=== PATIENT | female | born 1985 | race African-American/Black ===

== ENCOUNTER 2017-05-15 10:50 | Emergency (ER) | payer MEDICAID ==
[~2017-05-15] VITALS: Ht 165.1 cm; Wt 97.5 kg
[~2017-05-15 10:50] MED LIST: ACETAMINOP500 MG/51 ORAL; ACETAMINOPHEN500 M3 ORAL; DOXYCYCLINE HY100 M3 PO; NKM; PRILOSEC20 MG PO
[2017-05-15] MEDS ORDERED: Acetaminophen 500mg (ES) tab ORAL ONE (11:30)
[2017-05-15] MEDS ORDERED: ROBAXIN-750750 MG PO (12:50)
--- NOTE | 2017-05-15 13:21 | Emergency Room Report ---
History of Present Illness General Chief Complaint: Back Injury Present Illness HPI Patient is a 31-year-old female presented after increased low back pain. Patient gradual onset of symptoms. The patient had pain to the right buttock area. Patient reports having injury approximately one month ago. She denies any numbness or weakness to her legs. She reports having intermittent back spasms. This is worsened by flexion. She denies any bowel or bladder dysfunction. She been having any fever. She denied dysuria. Allergies: Coded Allergies: No Known Allergies (Unverified , 08/30/12) Patient History Reviewed Nursing Documentation: PMH: Agreed, PSxH: Agreed Nursing Documentation-PMH Hx Cardiac Problems: No Hx Cancer: No Hx Gastrointestinal Problems: Yes Hx Neurological Problems: No Review of Systems All Other Systems: negative except mentioned in HPI Physical Exam Vital Signs Date Time Temp Pulse Resp B/P (MAP) Pulse Ox O2 Delivery O2 Flow Rate FiO2 05/15/17 10:53 97.9 79 20 149/97 97 Room Air General Appearance: well appearing, no apparent distress, obese Head: normocephalic, atraumatic ENT: hearing grossly normal, normal voice Neck: full range of motion, supple Respiratory: no respiratory distress, speaking full sentences Cardiovascular #1: normal inspection Musculoskeletal: normal inspection, back normal, no calf tenderness, other - tenderness to right buttock area, no abscess noted, no tenderness to coccyx Neurologic: normal inspection, alert, oriented x3, normal gait Psychiatric: mood/affect normal Skin: no rash Medical Decision Making Diagnostic Impression: Primary Impression: Back pain ER Course Patient presented for back pain. Differential diagnosis included but was not limited to herniated disc, cauda equina syndrome, abdominal aortic aneurysm, perforated ulcer, spinal epidural abscess, spinal stenosis, lumbar fracture, metastatic lesion, pyelonephritis. X-ray imaging of the lumbar spine show degenerative changes without fracture. The patient is advised to follow up with primary care doctor in 1-2 days. Patient is advised to return if any worsening condition or if any changes in status that are concerning. This report is dictated with [employer] fish boning machine feeder software which may occasionally lead to discrepancies related to use of this software. Labs Test 05/15/17 11:30 Urine HCG, Qualitative Negative Last Vital Signs Date Time Temp Pulse Resp B/P (MAP) Pulse Ox O2 Delivery O2 Flow Rate FiO2 05/15/17 12:44 97.9 05/15/17 10:53 79 20 149/97 97 Room Air Status: improved Disposition: HOME, SELF-CARE Condition: Stable Scripts Methocarbamol* (ROBAXIN-750*) 750 Mg Tablet 750 MG PO TID, #21 TAB 0 Refills Prov: Isaac Richardson 05/15/17 Patient Instructions: Back Pain, Adult Isaac Richardson May 15, 2017 13:21
[2017-05-15 13:49] VITALS: BP 150/96
--- NOTE | 2017-05-15 14:58 | Diagnostic Imaging Report ---
. Indication: Reason For Exam: PAIN Technique: 4 views of the lumbar spine Comparison: None Findings: Bony alignment is normal. Vertebral body heights are preserved. The disc spaces are preserved. The facet and sacroiliac joint spaces are preserved. No acute fractures. No dislocations. Pedicles are intact. Sacral arches are preserved. Included extra spinal soft tissues are unremarkable Impression: Negative
== END 2017-05-15 13:51 | disposition home or self-care (01) ==
LOC: EMR 11:27
DX: M54.5 Low back pain (principal)
CPT/HCPCS: 72110; 81025; 99283